=== PATIENT | female | born 1985 | race American Indian/Alaskan Native ===

== ENCOUNTER 2018-12-22 10:14 | Outpatient (CLI) | payer OTHER | END 2018-12-22 10:15 | disposition home or self-care (01) | LOC: RAD 10:14 | DX: H93.11 Tinnitus, right ear (principal) ==

== ENCOUNTER 2019-01-08 10:28 | Outpatient (CLI) | payer OTHER | END 2019-01-08 10:29 | disposition home or self-care (01) | LOC: RAD 10:28 | DX: H90.3 Sensorineural hearing loss, bilateral (principal); H93.13 Tinnitus, bilateral ==